=== PATIENT | male | born 1960 | race Caucasian/White ===

== ENCOUNTER 2021-11-26 08:46 | Day surgery (SDC) | payer OTHER ==
[~2021-11-26] VITALS: Ht 177.8 cm; Wt 84.9 kg
[~2021-11-26 08:46] MED LIST: EYE VITAMIN-MI1 EACH PO
--- NOTE | 2021-11-26 09:40 | NUR ---
11/26/21 0940 Lisa Mendez NAUSEA AFTER IV INSERTION.
--- NOTE | 2021-11-26 10:27 | NUR ---
11/26/21 1027 Annabelle Lala PT. GRIMACING WHEN FIRST DOSE OF PROPOFOL GIVEN. PT. VERBALIZED HE COULD "FEEL IT IN HIS HEART." PT. FELT 2ND DOSE DO THE SAME THING. DR. COX WAS NOTIFIED. PT. ASLEEP AFTER THAT. VITALS STABLE.
== END 2021-11-26 10:56 | disposition home or self-care (01) ==
LOC: ORSCSDS 08:46
PROVIDERS: Internal Medicine Gastroenterology
PROC: 0DJD8ZZ Inspection of Lower Intestinal Tract, Via Natural or Artificial Opening Endoscopic (ICD-10-PCS; principal; 2021-11-26 10:00)
DX: Z12.11 Encounter for screening for malignant neoplasm of colon (principal); Z86.010 Personal history of colon polyps
CPT/HCPCS: J2405; J2704; J7120